=== PATIENT | female | born 1965 | race Caucasian/White ===

== ENCOUNTER 2023-04-02 14:42 | Emergency (ER) | payer OTHER, SELFPAY ==
[2023-04-02] VITALS (7 sets, daily range): BP systolic 155–169; BP diastolic 48–82; PULSE 59–72; RESP 12–20; TEMP 36.3–36.8; O2SAT 97–99; BMI 26.8
--- NOTE | ~2023-04-02 | XR_ITS ---
EXAMINATION: XR CHEST CLINICAL INFORMATION: Dizziness COMPARISON: None available. TECHNIQUE: 2 views of the chest were obtained. FINDINGS: No significant abnormality is noted involving the heart, lungs, mediastinum, bony thorax or soft tissues. XR/XR chest 2V IMPRESSION: Unremarkable chest examination.
--- NOTE | ~2023-04-02 | CT_ITS ---
EXAMINATION: CT HEAD WITHOUT CONTRAST CLINICAL INFORMATION: Dizziness COMPARISON: None available. TECHNIQUE: Contiguous axial imaging was performed from the skull base to vertex without intravenous administration of contrast. This CT examination was performed using dose optimization techniques as appropriate, variously including the following: *Automated exposure control *Adjustment of mA and/or kV according to patient size (this includes techniques or standardized protocols for targeted exams where dose is matched to indication/reason for exam; i.e. extremities or head) *Use of iterative reconstruction technique DLP: 535 mGy-cm FINDINGS: There is no acute intra-axial, extra-axial bleed, masses or midline shift. There is no acute infarction in evolution. There is no edema.. The wash[place] to white matter differentiation is maintained normal. The lateral ventricles are symmetrical in size and configuration without enlargement. Bone windows reveal no calvarial abnormality. There is no scalp soft tissue abnormality. There is mild mucoperiosteal thickening bilateral ethmoid and left frontal sinuses. CT/CT head/brain wo IV con IMPRESSION: No acute intracranial process seen.
--- NOTE | 2023-04-02 14:59 | ED_ITS ---
HPI - General Adult General Chief complaint: Dizziness Stated complaint: multi complaints facial infections vomiting Time Seen by Provider: 04/02/23 17:28 Related Data Allergies Allergy/AdvReac Type Severity Reaction Status Date / Time Unable to Assess Allergy Verified 04/02/23 15:01 [facility] Social History Social History Advance Directives: Yes Advance Directives on File: Yes Advance Directives Date on File: 04/02/23 Physical Exam ED Vital Signs: Vital Signs - 24 hr 04/02/23 14:58 04/02/23 17:20 04/02/23 18:40 Temperature 97.3 F 98.3 F Pulse Rate 63 66 64 Respiratory Rate 16 20 Blood Pressure 169/48 H 164/70 H 156/76 H Pulse Oximetry 97 98 Oxygen Delivery Method Room Air Room Air 04/02/23 18:41 04/02/23 18:42 04/02/23 20:12 Temperature 98.1 F Pulse Rate 66 72 59 Respiratory Rate 12 Blood Pressure 165/76 H 155/82 H 157/72 H Pulse Oximetry 99 Oxygen Delivery Method Room Air BMI result Body Mass Index 26.8 Course Course Course Narrative: RME performed by Mary Kay Hines PA-C. Patient is a 58 year old assigned female at presenting to the emergency department with dizziness and nausea. Patient states that this happened a few months ago, she went to a walk in, was told that it was fluid in her ears, and the symptoms resolved. Labs, imaging, and swabs ordered. Patient placed back in the waiting room pending room availability and results. Dr. Mccormack saw this patient. Please refer to his note from 04/02/2023. Medications Administered Discontinued Medications Generic Name Dose Route Start Last Admin Trade Name Shona PRN Reason Stop Dose Admin Meclizine HCl 25 mg 04/02/23 17:57 04/02/23 18:14 Meclizine Hcl 25 Mg Tablet PO 04/02/23 17:58 25 mg ONCE ONE Administration Medical Decision Making Lab Data 04/02/23 15:12 04/02/23 15:12 Labs: Lab Results 04/02/23 04/02/23 Range/Units 15:12 20:09 WBC 8.9 (4.8-10.8) X10*3/uL RBC 4.17 L (4.20-5.50) X10*6/uL Hgb 11.2 L (12.0-16.0) g/dl Hct 34.8 L (37.0-47.0) % MCV 83.5 (80.0-98.0) fL MCH 26.9 L (27.0-33.0) pg MCHC 32.2 (31.0-35.0) g/dl RDW 13.7 (11.0-16.0) % Plt Count 473 H (160-400) X10*3/uL MPV 9.1 L (9.4-12.3) fL Immature Gran % (Auto) 0.5 H (0.0-0.4) % Neut % (Auto) 64.4 (45-73) % Lymph % (Auto) 22.0 (20-40) % [place] % (Auto) 6.4 (2-11) % Eos % (Auto) 5.8 H (0-4) % Baso % (Auto) 0.9 (0-2) % Lymph # (Auto) 2.0 (1.2-4.9) X10*3/uL [place] # (Auto) 0.6 (0.1-1.2) X10*3/uL Eos # (Auto) 0.5 H (0.0-0.4) X10*3/uL Baso # (Auto) 0.1 (0.0-0.2) X10*3/uL Abs Immat Gran (auto) 0.04 H (0.00-0.03) X10*3/uL Absolute Neuts (auto) 5.7 (2.0-8.3) x10*3/uL Absolute Nucleated RBC 0.000 (0.0-0.012) X10*3/uL Nucleated RBC % (auto) 0.0 (0.0-0.2) /100WBC PT 12.0 (11.1-13.3) SEC INR 1.0 (0.9-1.1) APTT 36.7 H (26.0-36.4) SEC Sodium 140 (135-145) mmol/L Potassium 4.4 (3.3-5.1) mmol/L Chloride 104 (96-108) mmol/L Carbon Dioxide 27 (22-29) mmol/L Anion Gap 13 (12-20) BUN 14 (9-16) mg/dL Creatinine 0.71 (0.5-1.4) mg/dL Estim Creat Clear Calc 83.3 Estimated GFR > 60 Random Glucose 108 (60-115) mg/dL Calcium 9.4 (8.4-10.2) mg/dL Magnesium 2.1 (1.6-2.6) mg/dL Total Bilirubin 0.2 (0.0-1.0) mg/dL AST 13 (5-31) U/L ALT 6 (0-31) U/L Alkaline Phosphatase 64 (39-117) U/L Troponin I High Sens < 2.7 < 2.7 (<3.5-17.0) ng/L Total Protein 7.1 (6.5-8.0) g/dL Albumin 3.9 (3.5-5.0) g/dL COVID-19 ([facility]) Negative (Negative) COVID-19 Clin Com See Note Influenza Type A (TYREL) Negative (Negative) Influenza Type B (TYREL) Negative (Negative) Influenza A & B Note See Note Discharge Plan Discharge Clinical Impression: Dizziness
--- NOTE | 2023-04-02 15:00 | ECG_ITS ---
Test Reason : DIZZINESS Blood Pressure : / mmHG Vent. Rate : 067 BPM Atrial Rate : 067 BPM P-R Int : 152 ms QRS Dur : 074 ms QT Int : 446 ms P-R-T Axes : 055 045 063 degrees QTc Int : 471 ms Normal sinus rhythm Nonspecific T wave abnormality Prolonged QT Abnormal ECG No previous ECGs available Referred By: Mary Kay Hines Electronically Signed By:JAMAL DORAN MD
[2023-04-02 15:19] LABS: MANUAL DIFF FLAG NO
[2023-04-02 15:25] LABS: Basophils Absolute Auto 0.1 X10*3/uL (0.0-0.2); Basophils Percent Auto 0.9 % (0-2); Eosinophils Absolute Auto 0.5 X10*3/uL (0.0-0.4); Eosinophils Percent Auto 5.8 % (0-4); Hematocrit 34.8 % (37.0-47.0); Hemoglobin 11.2 g/dl (12.0-16.0); Imm Gran Abs Auto 0.04 X10*3/uL (0.00-0.03); Imm Gran Pct Auto 0.5 % (0.0-0.4); Mean Corpuscular HGB Conc 32.2 g/dl (31.0-35.0); Mean Corpuscular Hemoglobin 26.9 pg (27.0-33.0); Mean Corpuscular Volume 83.5 fL (80.0-98.0); Mean Platelet Volume 9.1 fL (9.4-12.3); Monocytes Absolute Auto 0.6 X10*3/uL (0.1-1.2); Monocytes Percent Auto 6.4 % (2-11); Neutrophils Absolute Auto 5.7 x10*3/uL (2.0-8.3); Neutrophils Percent Auto 64.4 % (45-73); Platelet Count 473 X10*3/uL (160-400); Red Blood Count 4.17 X10*6/uL (4.20-5.50); Red Cell Distribution Width 13.7 % (11.0-16.0); White Blood Count 8.9 X10*3/uL (4.8-10.8)
[2023-04-02 15:33] LABS: Partial Thromboplastin Time 36.7 SEC (26.0-36.4)
[2023-04-02 15:40] LABS: Alanine Aminotransferase 6 U/L (0-31); Albumin Level 3.9 g/dL (3.5-5.0); Alkaline Phosphatase 64 U/L (39-117); Anion Gap 13 (12-20); Aspartate Amino Transferase 13 U/L (5-31); Bilirubin Total 0.2 mg/dL (0.0-1.0); Blood Urea Nitrogen 14 mg/dL (9-16); Calcium 9.4 mg/dL (8.4-10.2); Carbon Dioxide 27 mmol/L (22-29); Chloride 104 mmol/L (96-108); Creatinine Clr Calc Pharmacy 83.3; Estimated Glomerular Filt Rate > 60; Glucose Random 108 mg/dL (60-115); Magnesium 2.1 mg/dL (1.6-2.6); Potassium 4.4 mmol/L (3.3-5.1); Sodium 140 mmol/L (135-145); Total Protein 7.1 g/dL (6.5-8.0)
[2023-04-02 15:42] LABS: IDNOW Serial# 08D9AD1C; Influenza A Negative (Negative); Influenza B2 Negative (Negative)
[2023-04-02 15:43] LABS: COVID-19 Test Negative (Negative); IDNOW Serial# 9DD0AD1C
[2023-04-02 15:51] LABS: Troponin-I High Sensitivity < 2.7 ng/L (<3.5-17.0)
--- NOTE | 2023-04-02 17:59 | ED_ITS ---
HPI - General Adult General Chief complaint: Dizziness Stated complaint: multi complaints facial infections vomiting Time Seen by Provider: 04/02/23 17:28 Source: patient Mode of arrival: ambulatory Limitations: no limitations History of Present Illness HPI narrative: 58 yold female with past medical history of fluid in the ear presents to the ED for episode of dizziness described as room spinning when she changed position of bed in the bed at 1:00pm. Patient states also she had a moment of ringing in the ear. Patient also states she had nausea at the moment. Patient denies any slurred speech, facial droop, paralysis of extremities, fever, chills, headahce, chest pain, shortness of breath, or loss of vision. Patient presently not dizzy. Related Data Previous Rx's Medication Instructions Recorded meclizine 50 mg tablet 50 mg PO BID PRN dizziness 7 days 04/02/23 #14 tabs Allergies Allergy/AdvReac Type Severity Reaction Status Date / Time Unable to Assess Allergy Verified 04/02/23 15:01 Review of Systems 2 Review of Systems: dizziness Yes all other systems are reviewed and are negative [facility] Social History Social History Advance Directives: Yes Advance Directives on File: Yes Advance Directives Date on File: 04/02/23 Physical Exam ED Vital Signs: Vital Signs - 24 hr 04/02/23 14:58 04/02/23 17:20 04/02/23 18:40 Temperature 97.3 F 98.3 F Pulse Rate 63 66 64 Respiratory Rate 16 20 Blood Pressure 169/48 H 164/70 H 156/76 H Pulse Oximetry 97 98 Oxygen Delivery Method Room Air Room Air 04/02/23 18:41 04/02/23 18:42 04/02/23 20:12 Temperature 98.1 F Pulse Rate 66 72 59 Respiratory Rate 12 Blood Pressure 165/76 H 155/82 H 157/72 H Pulse Oximetry 99 Oxygen Delivery Method Room Air 04/02/23 21:07 Temperature 97.9 F Pulse Rate 63 Respiratory Rate 12 Blood Pressure 167/74 H Pulse Oximetry 97 Oxygen Delivery Method Room Air BMI result Body Mass Index 26.8 Const General: cooperative, healthy appearing, comfortable, no acute distress, well developed, alert and awake Orientation/consciousness: oriented to person, oriented to place, oriented to time and patient oriented x3 HENMT Head: Yes normal to inspection, Yes No palpable skull fracture present, Yes normocephalic and Yes atraumatic Ears: hearing grossly normal bilaterally, external ears normal, TM's normal bilaterally, TM normal on the right, TM normal on the left, EAC's normal, mastoids normal and no periauricular adenopathy Eyes Other: presently negative for nystagmus. General: appearance normal, both eyes and all related structures Visual Simeon: normal visual simeon by confrontation Alignment and Position: alignment normal Periorbital: periorbital findings normal Eyelids: Yes eyelids normal Conjunctivae: conjunctivae normal Sclerae: sclerae normal Corneas: corneas normal Pupils: Equal, round and reactive pupils present EOM: EOMs intact bilaterally Direct Ophthalmoscopy: normal light reflex Neck Neck: Yes normal visual inspection, Yes full ROM, Yes no lymphadenopathy, Yes no meningeal signs, Yes trachea midline, Yes supple, No anterior neck swelling and No tender Chest Chest palpation & inspection: normal inspection of the chest and normal palpation of entire chest wall Resp Effort & Inspection: normal respiratory effort Cardio Jugular venous distension: no JVD Heart sounds: S1 normal heart sound present and S2 normal heart sound present GI Inspection: Yes normal to inspection Palpation (GI): Soft to palpation, not firm, nontender, no guarding and not rigid General: No CVA tenderness and Yes no CVA tenderness Back/Spine/Pelvis Back: no CVA tenderness, No CVA tenderness and No back tenderness Skin General skin exam: no rashes or lesions noted and elasticity normal Neuro Other: negative slurred speech. Negative facial droop. Negative paralysis of extremities. Negative pronator drift. finger to nose and rapid head movement intact. Negative Romberg. General: oriented to person, oriented to place, oriented to time, patient oriented x3, gait normal, tone normal, moves all extremities, Normal light touch and pain sensation, no meningeal signs, no focal motor deficits, CN's II-XI intact bilaterally and normal sensation to monofilament Cranial nerves: Yes Equal, round and reactive pupils present Extrem General: Yes normal to inspection and Yes full ROM Psych Appearance: grossly normal, well kempt and not disheveled Medications Administered Discontinued Medications Generic Name Dose Route Start Last Admin Trade Name Freq PRN Reason Stop Dose Admin Meclizine HCl 25 mg 04/02/23 17:57 04/02/23 18:14 Meclizine Hcl 25 Mg Tablet PO 04/02/23 17:58 25 mg ONCE ONE Administration Medical Decision Making Medical Decision Making [facility] Narrative: 58-year-old female presents to the ED for dizziness that occurred around 13:00 while lying flat on the bed and changing position of head. Patient states she was nauseous and ringing in the ear. Patient states she has had this before in the past was told she had fluid in her ear. Never officially diagnosed as vertigo. Patient presently asymptomatic. Patient denies any neuro stroke-like symptoms. Initial labs are normal. First troponin negative. Will do repeat troponin and orthostatics. Unlikely Stroke will do head CT scan. 8:44pm: orthostatics negative. Two troponins negative. Head CT scan normal. Patient feels better after meclizine. Patient is safe for discharge. Not suspecting carotid dissection, carotid vertebral blockage, posterior cerebellar infarct, myocardial infarction or brain bleed. EArs negative for infection. Patient informed to follow-up with ENT. NIH score 0 Differential Diagnosis Differential Diagnoses: The differential diagnosis associated with the presentation includes ( vertigo, myocardial infarction, SARs) Admission/Observation Consideration of admission/observation: Escalation of care including admission/observation considered Lab Data [facility] Lab Attestation statement: I reviewed the patient's lab results. 04/02/23 15:12 04/02/23 15:12 Labs: Lab Results 04/02/23 04/02/23 04/02/23 Range/Units 15:12 20:09 20:10 WBC 8.9 (4.8-10.8) X10*3/uL RBC 4.17 L (4.20-5.50) X10*6/uL Hgb 11.2 L (12.0-16.0) g/dl Hct 34.8 L (37.0-47.0) % MCV 83.5 (80.0-98.0) fL MCH 26.9 L (27.0-33.0) pg MCHC 32.2 (31.0-35.0) g/dl RDW 13.7 (11.0-16.0) % Plt Count 473 H (160-400) X10*3/uL MPV 9.1 L (9.4-12.3) fL Immature Gran % (Auto) 0.5 H (0.0-0.4) % Neut % (Auto) 64.4 (45-73) % Lymph % (Auto) 22.0 (20-40) % [place] % (Auto) 6.4 (2-11) % Eos % (Auto) 5.8 H (0-4) % Baso % (Auto) 0.9 (0-2) % Lymph # (Auto) 2.0 (1.2-4.9) X10*3/uL [place] # (Auto) 0.6 (0.1-1.2) X10*3/uL Eos # (Auto) 0.5 H (0.0-0.4) X10*3/uL Baso # (Auto) 0.1 (0.0-0.2) X10*3/uL Abs Immat Gran (auto) 0.04 H (0.00-0.03) X10*3/uL Absolute Neuts (auto) 5.7 (2.0-8.3) x10*3/uL Absolute Nucleated RBC 0.000 (0.0-0.012) X10*3/uL Nucleated RBC % (auto) 0.0 (0.0-0.2) /100WBC PT 12.0 (11.1-13.3) SEC INR 1.0 (0.9-1.1) APTT 36.7 H (26.0-36.4) SEC Sodium 140 (135-145) mmol/L Potassium 4.4 (3.3-5.1) mmol/L Chloride 104 (96-108) mmol/L Carbon Dioxide 27 (22-29) mmol/L Anion Gap 13 (12-20) BUN 14 (9-16) mg/dL Creatinine 0.71 (0.5-1.4) mg/dL Estim Creat Clear Calc 83.3 Estimated GFR > 60 Random Glucose 108 (60-115) mg/dL Calcium 9.4 (8.4-10.2) mg/dL Magnesium 2.1 (1.6-2.6) mg/dL Total Bilirubin 0.2 (0.0-1.0) mg/dL AST 13 (5-31) U/L ALT 6 (0-31) U/L Alkaline Phosphatase 64 (39-117) U/L Troponin I High Sens < 2.7 < 2.7 (<3.5-17.0) ng/L B-Natriuretic Peptide 26 (<100) pg/mL Total Protein 7.1 (6.5-8.0) g/dL Albumin 3.9 (3.5-5.0) g/dL COVID-19 ([facility]) Negative (Negative) COVID-19 Clin Com See Note Influenza Type A (TYREL) Negative (Negative) Influenza Type B (TYREL) Negative (Negative) Influenza A & B Note See Note Independent Interpretation I performed an independent interpretation of an: EKG ( normal sinus rhythm. Negative STEMI) and CT Scan Radiology Impression Discussion of test interpretation with radiology: I have reviewed the radiologist's reading. Independent Historian Clinical information obtained from an independent historian. History obtained from or confirmed by: Other (patient and sister) External Record Review External record reviewed: Other (prior visits) Prescription Management I considered prescription management with: Other (dizziness) Discharge Plan Discharge Clinical Impression: Dizziness Patient Disposition: Home, Self-Care Instructions: Dizziness (ED) Additional Instructions: return to the ED immediately for any nausea, vomiting, headache, slurred speech, facial droop, loss of vision, paralysis of extremities, severe headache, severe dizziness, inability to walk, or any other concerning symptoms. Please follow-up with ENT and PCP Prescriptions: New meclizine 50 mg tablet 50 mg PO BID PRN (Reason: dizziness) 7 Days Qty: 14 0RF Referrals: Shamir Jimenez [Physician] - (Vertigo, Dizziness) Stand Alone Forms: Work/School Release Interventions: ED Discharge Assessment Last Done: 04/02/23 21:18 Discharge Date/Time: 04/02/23 21:18 Print Language: Danish
[2023-04-02] MEDS: Meclizine HCl 25 MG TABLET PO (18:14)
[2023-04-02 20:35] LABS: Troponin-I High Sensitivity < 2.7 ng/L (<3.5-17.0)
[2023-04-02 20:54] LABS: B Type Natriuretic Peptide 26 pg/mL (<100)
== END 2023-04-02 21:18 | disposition home or self-care (01) ==
PROVIDERS: Physician Assistant; Physician Assistant Medical; Emergency Provider Emergency Medicine
DX: R42 Dizziness and giddiness (principal); Z11.52 Encounter for screening for COVID-19
CPT/HCPCS: 36415; 70450; 71046; 80053; 83735; 83880; 84484; 85025; 85610; 85730; 87502; 87635; 93005; 99284; 99285

== ENCOUNTER → 2023-04-02 15:00 | Outpatient (BNV) | payer OTHER, SELFPAY | PROVIDERS: Emergency Provider Emergency Medicine; Visit Provider Internal Medicine Cardiovascular Disease | DX: R42 Dizziness and giddiness (principal) | CPT/HCPCS: 93010 ==